=== PATIENT | male | born 1945 | race African-American/Black ===

== ENCOUNTER 2020-08-04 06:22 | Inpatient (IN) | payer MEDICARE, OTHER ==
[~2020-08-04] VITALS: Ht 175.3 cm; Wt 106.0 kg
[~2020-08-04 06:22] MED LIST: ALEN70TA77 PO; ATOR10TA9 PO; BENA10TA59 PO; BRIM5DRO2 RIGHTEYE; GABA300C10 PO; HYDR-3653 PO; LATA2.5D4 RIGHTEYE; PANT40TA6 PO; PIOG30TA68 PO; POTA20LI2 PO; VERA120T13 PO
--- NOTE | 2020-08-04 06:42 | NUR ---
pt walked back to room 36. to jerod pt. awake and alert x4.
--- NOTE | 2020-08-04 06:45 | NUR ---
net technical architect to bedside to do ekg. pt awake and alert.
--- NOTE | 2020-08-04 06:59 | NUR ---
report and care transferred to day shift RN without incident.
[2020-08-04] MEDS ORDERED: SODIUM CHLORIDE FLUSH 10ML SYR IVF ONE (07:00)
--- NOTE | 2020-08-04 07:32 | NUR ---
Iv started x 2 attempts labs drawn, pt on cardiac and [id number] monitor. at bedisde. BS are hypoactive, abdomen is firm and distended. Pt states passed flatulence this morning, no BM since friday. Pt states he has been burping a lot this week. Pt to go to XRay. Plan of care discussed.
--- NOTE | 2020-08-04 07:46 | NUR ---
ERP aware of patient epigastric pain.
[2020-08-04] MEDS ORDERED: ONDANSETRON 2MG/ML, 2ML ONE ×2 (07:50→14:18)
[2020-08-04] MEDS ORDERED: MORPHINE SULFATE 4 MG/ML, 1ML ONE ×3 (07:51→16:53)
[2020-08-04] MEDS: MORPHINE SULFATE 4 MG/ML, 1ML IVPush PRN ×4 (07:52→08:37)
[2020-08-04 07:57] LABS: BASOPHILS % (AUTO) 0 % (0-1); EOSINOPHILS % (AUTO) 0 % (1-7); LYMPHOCYTES % (AUTO) 13 % (22-44); MEAN CORPUSCULAR HEMOGLOBIN 27.9 pg (27.5-34.5); MEAN CORPUSCULAR HGB CONC 33.4 g/dL (33.2-36.2); MEAN PLATELET VOLUME 8.5 fL (7.4-10.4); MONOCYTES % (AUTO) 9 % (2-9); NEUTROPHILS % (AUTO) 78 % (42-75); PLATELET COUNT 203 x10^3/uL (130-400); RED BLOOD COUNT 4.64 x10^6/uL (4.38-5.82); RED CELL DISTRIBUTION WIDTH 15.5 % (9.4-14.8)
[2020-08-04 08:00] LABS: MD NO
[2020-08-04] MEDS ORDERED: ONDANSETRON 2MG/ML, 2ML IVPush ONE (08:00)
--- NOTE | 2020-08-04 08:02 | NUR ---
Patient medicated with morphine, both doses, pain increased to 8/10. Patient appears more calm, however, states painis not better, pt away to xray. at bedside. Awaiting results.
[2020-08-04 08:08] LABS: ANION GAP 9 mmol/L (5-15); CALCIUM 9.5 mg/dL (8.5-10.1); CHLORIDE 96 mmol/L (98-107)
[2020-08-04 08:11] LABS: ALANINE AMINOTRANSFERASE 16 U/L (12-78); ALKALINE PHOSPHATASE 56 U/L (45-117); BILIRUBIN,TOTAL 0.6 mg/dL (0.2-1.0); CREATININE 1.46 mg/dL (0.7-1.3); TOTAL PROTEIN 8.7 g/dL (6.4-8.2); TROPONIN I 0.017 ng/mL (0.000-0.045)
--- NOTE | 2020-08-04 08:37 | NUR ---
Patient returned from xray with 8/10 pain. medicated 2 more times, now resting with pain 5/10. Awaiting for radiology interpretation.
[2020-08-04] MEDS ORDERED: hydrALAzine 20 MG/ML, 1ML ONE ×2 (09:05→12:27)
--- NOTE | 2020-08-04 09:15 | NUR ---
pt needs new iv; 22 in hand is not adequate for contrast injection.
[2020-08-04] MEDS ORDERED: hydrALAzine 20 MG/ML, 1ML IV ONE ×2 (09:30→14:00)
--- NOTE | 2020-08-04 10:15 | NUR ---
ATTEMPTED IV X 3. <Y SELF AND SONIA HANSEN TO ATTEMPT IV
--- NOTE | 2020-08-04 10:55 | NUR ---
Ct called, 20 sadie right forearm placved by Laura ASENCIO. Awaiting Ct scan and results.
--- NOTE | 2020-08-04 11:09 | NUR ---
Pt away to CT scan.
--- NOTE | 2020-08-04 11:33 | NUR ---
Called CT. They did not come when called earlier. Pt Bp has imporved, at bedside. awaiting Ct scan.
--- NOTE | 2020-08-04 11:46 | NUR ---
pt away to CT . BP rechecked pain is 01/11. Notify Dr. Forbes
[2020-08-04] MEDS ORDERED: OMNIPAQUE 350 MG/ML, 100ML BOTTLE ONE (11:59)
--- NOTE | 2020-08-04 12:35 | NUR ---
DR. Forbes at [facility]. Pt swabbed for COVID. Plan of care discussed. Verbal order for hydralazine 10 IV, BP 201/100. at bedside.
--- NOTE | 2020-08-04 12:43 | NUR ---
pt urinated, dark emmanuel
[2020-08-04] MEDS ORDERED: SODIUM CHLORIDE 0.9% 1,000ML IVBOLUS ONE (13:00)
[2020-08-04] MEDS ORDERED: SODIUM CHLORIDE 0.9% 1,000 ML IV ONE (13:00)
--- NOTE | 2020-08-04 13:05 | NUR ---
BP has decreased, pt on monitor, at bedside.
--- NOTE | 2020-08-04 13:20 | NUR ---
Report to OR. [facility] MD's x 3 at bedside. MD and TECHNOLOGY RISK INTERN aware of patient continue HTN and tachycardia. at bedside.
--- NOTE | 2020-08-04 13:45 | NUR ---
Ip Architect here to tow picker patient. Pt goning to OR. Pt to take belongings home.
[2020-08-04] MEDS ORDERED: FENTANYL PF 250 MCG/5ML ONE (13:49)
[2020-08-04] MEDS ORDERED: CEFOTETAN 2 GM ONE (14:18)
[2020-08-04] MEDS ORDERED: ESMOLOL 100 MG/10 ML ONE (14:18)
[2020-08-04] MEDS ORDERED: PROPOFOL 10 MG/ML, 20ML ONE (14:18)
[2020-08-04] MEDS ORDERED: SUCCINYLCHOLINE 20 MG/ML, 10ML ONE (14:18)
[2020-08-04] MEDS ORDERED: SUGAMMADEX 200 MG/2 ML IVPush ONE (14:18)
[2020-08-04] MEDS ORDERED: ROCURONIUM 10MG/ML,5ML ONE (14:18)
[2020-08-04] MEDS ORDERED: SODIUM CHLORIDE FLUSH 10ML SYR IVF PRN (14:30)
[2020-08-04] MEDS ORDERED: METRONIDAZOLE PMX 500MG/100ML 100 ML ONE (15:23)
[2020-08-04] MEDS ORDERED: IBUPROFEN 600 MG TABLET PO PRN (16:00)
[2020-08-04] MEDS ORDERED: LACTATED RINGERS 1,000 ML IV SCH (16:00)
[2020-08-04] MEDS ORDERED: ONDANSETRON ODT 4 MG PO PRN (16:00)
[2020-08-04] MEDS ORDERED: DEXTROSE 4 GM TAB.CHEW PO PRN (16:00)
[2020-08-04] MEDS ORDERED: hydrALAzine 20 MG/ML, 1ML IVPush PRN (16:00)
[2020-08-04] MEDS: INSULIN LISPRO 100 UNITS/ML, PEN SQ-INSULIN SCH ×2 (16:00→21:00)
[2020-08-04] MEDS ORDERED: morphine SULFATE 10 MG/ML, 1ML IVPush PRN (16:00)
[2020-08-04] MEDS ORDERED: ACETAMINOPHEN 325 MG TABLET PO PRN (16:00)
[2020-08-04] MEDS ORDERED: GLUCAGON 1 MG IM PRN (16:00)
[2020-08-04] MEDS ORDERED: ENALAPRILAT 1.25 MG/ML, 2ML IVPush PRN (16:00)
[2020-08-04] MEDS ORDERED: DEXTROSE 50%, 50ML SYRINGE IVPush PRN (16:00)
[2020-08-04] MEDS: morphine SULFATE 10 MG/ML, 1ML IVPush PRN ×2 (17:00→17:15)
[2020-08-04] MEDS ORDERED: hydrALAzine 20 MG/ML, 1ML IV PRN (17:30)
[2020-08-04] MEDS ORDERED: LABETALOL 5MG/ML, 20ML IV PRN (17:30)
[2020-08-04] MEDS ORDERED: FENTANYL PF 100 MCG/2ML IV PRN (17:30)
[2020-08-04] MEDS ORDERED: ONDANSETRON 2MG/ML, 2ML IVPush PRN (17:30)
[2020-08-04] MEDS ORDERED: PROMETHAZINE 25 MG/ML, 1ML IVPush PRN (17:30)
[2020-08-04 17:45] VITALS: BP 158/88
[2020-08-04] MEDS ORDERED: morphine SULFATE 10 MG/ML, 1ML IV PRN (18:30)
[2020-08-04] MEDS ORDERED: ENOXAPARIN 40 MG/0.4 ML SQ SCH (18:30)
[2020-08-04 19:48] VITALS: BP 134/83
[2020-08-04] MEDS ORDERED: NETA2.5D EACHEYE (20:18)
[2020-08-04] MEDS ORDERED: PRAV20TA2 PO (20:18)
[2020-08-04] MEDS: VERAPAMIL 120MG TABLET PO SCH (21:00)
[2020-08-04] MEDS: PANTOPRAZOLE 40MG TABLET PO SCH (21:00)
[2020-08-04] MEDS: GABAPENTIN 300 MG CAPSULE PO SCH (21:00)
[2020-08-04] MEDS: LATANOPROST OPHTH 0.005%, 2.5ML RIGHTEYE SCH (21:00)
[2020-08-04] MEDS: SODIUM CHLORIDE FLUSH 10ML SYR IVF SCH (21:00)
[2020-08-04] MEDS: POTASSIUM CHLORIDE 20 MEQ TAB.ER.PRT PO SCH (21:00)
[2020-08-04] MEDS: PIPERACILLIN/TAZO/PMX 3.375GM 50 ML IV SCH (22:21)
[2020-08-05 00:04] VITALS: BP 103/67
[2020-08-05] MEDS: LACTATED RINGERS 1,000 ML IV SCH ×3 (02:16→22:13)
[2020-08-05] MEDS: PIPERACILLIN/TAZO/PMX 3.375GM 50 ML IV SCH ×4 (03:43→23:06)
[2020-08-05 04:19] VITALS: BP 108/64
[2020-08-05 04:47] LABS: BASOPHILS % (AUTO) 0 % (0-1); EOSINOPHILS % (AUTO) 0 % (1-7); LYMPHOCYTES % (AUTO) 8 % (22-44); MD NO; MEAN CORPUSCULAR HEMOGLOBIN 27.8 pg (27.5-34.5); MEAN CORPUSCULAR HGB CONC 33.3 g/dL (33.2-36.2); MEAN PLATELET VOLUME 8.2 fL (7.4-10.4); MONOCYTES % (AUTO) 15 % (2-9); NEUTROPHILS % (AUTO) 77 % (42-75); PLATELET COUNT 185 x10^3/uL (130-400); RED BLOOD COUNT 4.51 x10^6/uL (4.38-5.82); RED CELL DISTRIBUTION WIDTH 15.5 % (9.4-14.8)
[2020-08-05 04:54] LABS: CHLORIDE 100 mmol/L (98-107)
[2020-08-05 04:59] LABS: ALANINE AMINOTRANSFERASE 12 U/L (12-78); ALBUMIN 2.6 g/dL (3.4-5.0); ALKALINE PHOSPHATASE 36 U/L (45-117); ANION GAP 7 mmol/L (5-15); BILIRUBIN,TOTAL 0.8 mg/dL (0.2-1.0); CALCIUM 7.6 mg/dL (8.5-10.1); CREATININE 1.88 mg/dL (0.7-1.3); TOTAL PROTEIN 5.9 g/dL (6.4-8.2)
[2020-08-05] MEDS ORDERED: ALENDRONATE 70 MG TABLET PO SCH (06:00)
[2020-08-05] MEDS: INSULIN LISPRO 100 UNITS/ML, PEN SQ-INSULIN SCH ×4 (07:00→21:00)
[2020-08-05 07:19] VITALS: BP 117/76
[2020-08-05] MEDS ORDERED: ENOXAPARIN 40 MG/0.4 ML SQ SCH (09:00)
[2020-08-05] MEDS: POTASSIUM CHLORIDE 20 MEQ TAB.ER.PRT PO SCH ×2 (09:00→21:00)
[2020-08-05] MEDS: BENAZEPRIL 10 MG TABLET PO SCH (09:00)
[2020-08-05] MEDS: GABAPENTIN 300 MG CAPSULE PO SCH ×3 (09:00→21:00)
[2020-08-05] MEDS: SODIUM CHLORIDE FLUSH 10ML SYR IVF SCH ×2 (09:00→21:00)
[2020-08-05] MEDS: PIOGLITAZONE 15 MG TABLET PO SCH (09:00)
[2020-08-05] MEDS: PRAVASTATIN 20 MG TABLET PO SCH (09:00)
[2020-08-05] MEDS: PANTOPRAZOLE 40MG TABLET PO SCH ×2 (09:00→21:00)
[2020-08-05] MEDS: VERAPAMIL 120MG TABLET PO SCH ×2 (09:00→21:00)
[2020-08-05 12:38] VITALS: BP 139/81
[2020-08-05] MEDS: MORPHINE 30MG/30ML PCA.SYR IV PRN (14:12)
[2020-08-05 18:35] LABS: ANION GAP 7 mmol/L (5-15); CALCIUM 8.1 mg/dL (8.5-10.1); CHLORIDE 98 mmol/L (98-107); CREATININE 3.05 mg/dL (0.7-1.3)
[2020-08-05] MEDS: LATANOPROST RIGHTEYE SCH (20:00)
[2020-08-05 20:22] VITALS: BP 133/79
[2020-08-05] MEDS: RHOPRESSA RIGHTEYE SCH (21:00)
[2020-08-05] MEDS: LATANOPROST OPHTH 0.005%, 2.5ML RIGHTEYE SCH (21:00)
[2020-08-06 01:19] VITALS: BP 131/78
[2020-08-06] MEDS: LACTATED RINGERS 1,000 ML IV SCH ×3 (05:08→20:54)
[2020-08-06] MEDS: PIPERACILLIN/TAZO/PMX 3.375GM 50 ML IV SCH ×2 (05:08→12:10)
[2020-08-06 06:28] LABS: CHLORIDE 100 mmol/L (98-107)
[2020-08-06 06:29] LABS: BASOPHILS % (AUTO) 0 % (0-1); EOSINOPHILS % (AUTO) 0 % (1-7); LYMPHOCYTES % (AUTO) 14 % (22-44); MEAN CORPUSCULAR HEMOGLOBIN 28.1 pg (27.5-34.5); MEAN CORPUSCULAR HGB CONC 33.4 g/dL (33.2-36.2); MEAN PLATELET VOLUME 8.4 fL (7.4-10.4); MONOCYTES % (AUTO) 16 % (2-9); NEUTROPHILS % (AUTO) 70 % (42-75); PLATELET COUNT 171 x10^3/uL (130-400); RED BLOOD COUNT 3.82 x10^6/uL (4.38-5.82); RED CELL DISTRIBUTION WIDTH 15.5 % (9.4-14.8)
[2020-08-06 06:35] LABS: MD NO
[2020-08-06 06:40] LABS: ANION GAP 9 mmol/L (5-15); CALCIUM 7.9 mg/dL (8.5-10.1); CREATININE 2.89 mg/dL (0.7-1.3)
[2020-08-06] MEDS: INSULIN LISPRO 100 UNITS/ML, PEN SQ-INSULIN SCH ×4 (07:00→20:57)
[2020-08-06 07:31] VITALS: BP 132/80
[2020-08-06] MEDS: COMBIGAN RIGHTEYE SCH ×2 (08:00→16:32)
[2020-08-06] MEDS: SODIUM CHLORIDE FLUSH 10ML SYR IVF SCH ×2 (09:00→20:54)
[2020-08-06] MEDS: BENAZEPRIL 10 MG TABLET PO SCH (09:13)
[2020-08-06] MEDS: PANTOPRAZOLE 40MG TABLET PO SCH ×2 (09:13→20:57)
[2020-08-06] MEDS: PIOGLITAZONE 15 MG TABLET PO SCH (09:13)
[2020-08-06] MEDS: PRAVASTATIN 20 MG TABLET PO SCH (09:13)
[2020-08-06] MEDS: VERAPAMIL 120MG TABLET PO SCH ×2 (09:13→20:57)
[2020-08-06] MEDS: GABAPENTIN 300 MG CAPSULE PO SCH ×3 (09:14→20:56)
[2020-08-06] MEDS: POTASSIUM CHLORIDE 20 MEQ TAB.ER.PRT PO SCH ×2 (09:14→20:56)
[2020-08-06] MEDS: ENOXAPARIN 30 MG/0.3 ML SQ SCH (09:14)
[2020-08-06 13:36] VITALS: BP 128/73
[2020-08-06] MEDS ORDERED: MELATONIN 5 MG TABLET PO PRN (16:30)
[2020-08-06] MEDS ORDERED: LACTATED RINGERS 1,000 ML IV SCH (18:30)
[2020-08-06 20:24] VITALS: BP 124/76
[2020-08-06] MEDS: LATANOPROST RIGHTEYE SCH (20:56)
[2020-08-06] MEDS: RHOPRESSA RIGHTEYE SCH (20:57)
[2020-08-06] MEDS: LATANOPROST OPHTH 0.005%, 2.5ML RIGHTEYE SCH (20:58)
[2020-08-07 01:49] VITALS: BP 144/74
[2020-08-07 05:43] LABS: ANION GAP 7 mmol/L (5-15); CALCIUM 8.1 mg/dL (8.5-10.1); CHLORIDE 105 mmol/L (98-107); CREATININE 1.89 mg/dL (0.7-1.3)
[2020-08-07 05:44] LABS: BASOPHILS % (AUTO) 0 % (0-1); EOSINOPHILS % (AUTO) 1 % (1-7); LYMPHOCYTES % (AUTO) 23 % (22-44); MEAN CORPUSCULAR HEMOGLOBIN 27.9 pg (27.5-34.5); MEAN CORPUSCULAR HGB CONC 33.3 g/dL (33.2-36.2); MEAN PLATELET VOLUME 8.5 fL (7.4-10.4); MONOCYTES % (AUTO) 17 % (2-9); NEUTROPHILS % (AUTO) 60 % (42-75); PLATELET COUNT 162 x10^3/uL (130-400); RED BLOOD COUNT 3.13 x10^6/uL (4.38-5.82); RED CELL DISTRIBUTION WIDTH 15.7 % (9.4-14.8)
[2020-08-07 06:32] LABS: MD SCAN
[2020-08-07] MEDS: INSULIN LISPRO 100 UNITS/ML, PEN SQ-INSULIN SCH ×4 (07:00→21:00)
[2020-08-07 07:50] VITALS: BP 126/72
[2020-08-07] MEDS: COMBIGAN RIGHTEYE SCH ×2 (08:00→16:45)
[2020-08-07] MEDS: MORPHINE 30MG/30ML PCA.SYR IV PRN (08:48)
[2020-08-07] MEDS: PANTOPRAZOLE 40MG TABLET PO SCH ×2 (08:48→21:13)
[2020-08-07] MEDS: GABAPENTIN 300 MG CAPSULE PO SCH ×3 (08:48→21:13)
[2020-08-07] MEDS: PRAVASTATIN 20 MG TABLET PO SCH (08:48)
[2020-08-07] MEDS: BENAZEPRIL 10 MG TABLET PO SCH (08:48)
[2020-08-07] MEDS: POTASSIUM CHLORIDE 20 MEQ TAB.ER.PRT PO SCH ×2 (08:48→21:16)
[2020-08-07] MEDS: ENOXAPARIN 30 MG/0.3 ML SQ SCH (08:49)
[2020-08-07] MEDS: SODIUM CHLORIDE FLUSH 10ML SYR IVF SCH ×2 (08:49→21:13)
[2020-08-07] MEDS: VERAPAMIL 120MG TABLET PO SCH ×2 (08:52→21:14)
[2020-08-07] MEDS: LACTATED RINGERS 1,000 ML IV SCH ×2 (09:01→21:13)
[2020-08-07] MEDS: ONDANSETRON 2MG/ML, 2ML IVPush PRN (09:05)
[2020-08-07 12:25] VITALS: BP 122/75
[2020-08-07 19:14] VITALS: BP 145/74
[2020-08-07] MEDS: LATANOPROST RIGHTEYE SCH (20:00)
[2020-08-07] MEDS: LATANOPROST OPHTH 0.005%, 2.5ML RIGHTEYE SCH (21:00)
[2020-08-07] MEDS: RHOPRESSA RIGHTEYE SCH (21:00)
[2020-08-08 00:25] VITALS: BP 119/74
[2020-08-08 05:19] LABS: BASOPHILS % (AUTO) 0 % (0-1); EOSINOPHILS % (AUTO) 2 % (1-7); LYMPHOCYTES % (AUTO) 24 % (22-44); MEAN CORPUSCULAR HEMOGLOBIN 28.1 pg (27.5-34.5); MEAN CORPUSCULAR HGB CONC 33.3 g/dL (33.2-36.2); MEAN PLATELET VOLUME 8.4 fL (7.4-10.4); MONOCYTES % (AUTO) 18 % (2-9); NEUTROPHILS % (AUTO) 56 % (42-75); PLATELET COUNT 156 x10^3/uL (130-400); RED CELL DISTRIBUTION WIDTH 15.2 % (9.4-14.8)
[2020-08-08] MEDS: LACTATED RINGERS 1,000 ML IV SCH ×2 (05:27→16:14)
[2020-08-08] MEDS: COMBIGAN RIGHTEYE SCH ×2 (05:28→16:14)
[2020-08-08 05:29] LABS: ALBUMIN 2.6 g/dL (3.4-5.0); ANION GAP 5 mmol/L (5-15); CALCIUM 8.2 mg/dL (8.5-10.1); CHLORIDE 106 mmol/L (98-107)
[2020-08-08 05:32] LABS: MD NO
[2020-08-08 05:34] LABS: ALANINE AMINOTRANSFERASE 11 U/L (12-78); ALKALINE PHOSPHATASE 32 U/L (45-117); BILIRUBIN,TOTAL 0.4 mg/dL (0.2-1.0); CREATININE 1.37 mg/dL (0.7-1.3); TOTAL PROTEIN 6.3 g/dL (6.4-8.2)
[2020-08-08 06:15] VITALS: BP 121/58
[2020-08-08] MEDS: INSULIN LISPRO 100 UNITS/ML, PEN SQ-INSULIN SCH ×4 (07:00→20:28)
[2020-08-08] MEDS: ALENDRONATE 70 MG TABLET PO SCH (07:07)
[2020-08-08 07:15] VITALS: BP 121/58
[2020-08-08] MEDS: PRAVASTATIN 20 MG TABLET PO SCH (08:28)
[2020-08-08] MEDS: BENAZEPRIL 10 MG TABLET PO SCH (08:28)
[2020-08-08] MEDS: VERAPAMIL 120MG TABLET PO SCH ×2 (08:28→20:31)
[2020-08-08] MEDS: GABAPENTIN 300 MG CAPSULE PO SCH ×3 (08:28→20:27)
[2020-08-08] MEDS: POTASSIUM CHLORIDE 20 MEQ TAB.ER.PRT PO SCH ×2 (08:28→20:27)
[2020-08-08] MEDS: PANTOPRAZOLE 40MG TABLET PO SCH ×2 (08:28→20:27)
[2020-08-08] MEDS: ENOXAPARIN 30 MG/0.3 ML SQ SCH (08:28)
[2020-08-08] MEDS: SODIUM CHLORIDE FLUSH 10ML SYR IVF SCH ×2 (08:29→20:27)
[2020-08-08] MEDS: MAGNESIUM HYDROXIDE 8%, 30ML UDC PO SCH ×2 (11:45→20:26)
[2020-08-08 13:57] VITALS: BP 123/74
[2020-08-08 19:35] VITALS: BP 123/71
[2020-08-08] MEDS: LATANOPROST RIGHTEYE SCH (20:00)
[2020-08-08] MEDS: RHOPRESSA RIGHTEYE SCH (20:27)
[2020-08-08] MEDS: LATANOPROST OPHTH 0.005%, 2.5ML RIGHTEYE SCH (20:28)
[2020-08-09] MEDS: LACTATED RINGERS 1,000 ML IV SCH ×3 (00:44→17:34)
[2020-08-09 01:02] VITALS: BP 123/71
[2020-08-09] MEDS: COMBIGAN RIGHTEYE SCH ×2 (05:20→17:10)
[2020-08-09 05:50] LABS: BASOPHILS % (AUTO) 0 % (0-1); EOSINOPHILS % (AUTO) 2 % (1-7); LYMPHOCYTES % (AUTO) 25 % (22-44); MEAN CORPUSCULAR HEMOGLOBIN 27.8 pg (27.5-34.5); MEAN CORPUSCULAR HGB CONC 33.1 g/dL (33.2-36.2); MEAN PLATELET VOLUME 7.9 fL (7.4-10.4); MONOCYTES % (AUTO) 18 % (2-9); NEUTROPHILS % (AUTO) 55 % (42-75); PLATELET COUNT 209 x10^3/uL (130-400); RED BLOOD COUNT 3.08 x10^6/uL (4.38-5.82); RED CELL DISTRIBUTION WIDTH 15.5 % (9.4-14.8)
[2020-08-09 05:53] LABS: MD NO
[2020-08-09 06:01] LABS: ANION GAP 4 mmol/L (5-15); CALCIUM 8.1 mg/dL (8.5-10.1); CHLORIDE 105 mmol/L (98-107); CREATININE 1.16 mg/dL (0.7-1.3)
[2020-08-09] MEDS: INSULIN LISPRO 100 UNITS/ML, PEN SQ-INSULIN SCH ×4 (06:41→20:49)
[2020-08-09 08:00] VITALS: BP 136/80
[2020-08-09] MEDS: SODIUM CHLORIDE FLUSH 10ML SYR IVF SCH ×2 (09:00→20:52)
[2020-08-09] MEDS: MAGNESIUM HYDROXIDE 8%, 30ML UDC PO SCH ×2 (09:28→20:53)
[2020-08-09] MEDS: GABAPENTIN 300 MG CAPSULE PO SCH ×3 (09:29→20:52)
[2020-08-09] MEDS: PRAVASTATIN 20 MG TABLET PO SCH (09:29)
[2020-08-09] MEDS: PANTOPRAZOLE 40MG TABLET PO SCH ×2 (09:29→20:58)
[2020-08-09] MEDS: BENAZEPRIL 10 MG TABLET PO SCH (09:29)
[2020-08-09] MEDS: VERAPAMIL 120MG TABLET PO SCH ×2 (09:30→20:52)
[2020-08-09] MEDS: POTASSIUM CHLORIDE 20 MEQ TAB.ER.PRT PO SCH ×2 (09:30→20:52)
[2020-08-09] MEDS: ENOXAPARIN 40 MG/0.4 ML SQ SCH (09:33)
[2020-08-09] MEDS: OXYcodone/APAP 5/325MG TABLET PO PRN (12:10)
[2020-08-09 13:13] VITALS: BP 119/72
[2020-08-09 19:13] VITALS: BP 121/78
[2020-08-09] MEDS: LATANOPROST RIGHTEYE SCH (20:00)
[2020-08-09] MEDS: LATANOPROST OPHTH 0.005%, 2.5ML RIGHTEYE SCH (20:58)
[2020-08-09] MEDS: RHOPRESSA RIGHTEYE SCH (20:58)
[2020-08-10 00:52] VITALS: BP 145/74
[2020-08-10] MEDS: LACTATED RINGERS 1,000 ML IV SCH ×2 (03:58→14:12)
[2020-08-10 05:49] LABS: MEAN CORPUSCULAR HEMOGLOBIN 27.9 pg (27.5-34.5); MEAN CORPUSCULAR HGB CONC 33.4 g/dL (33.2-36.2); MEAN PLATELET VOLUME 7.9 fL (7.4-10.4); PLATELET COUNT 238 x10^3/uL (130-400); RED BLOOD COUNT 3.34 x10^6/uL (4.38-5.82); RED CELL DISTRIBUTION WIDTH 15.4 % (9.4-14.8)
[2020-08-10 06:12] LABS: MD YES
[2020-08-10 06:13] LABS: BAND#(MANUAL) 0.22 x10^3/uL; BANDS%(MANUAL) 3 % (0-7)
[2020-08-10 06:14] LABS: ANISOCYTOSIS 1+; LYMPH#(MANUAL) 1.58 x10^3/uL (1-3.4); LYMPHS% (MANUAL) 22 % (22-44); MONOS#(MANUAL) 1.08 x10^3/uL (0.3-2.7); MONOS% (MANUAL) 15 % (2-9); OVALOCYTES 1+; POLYCHROMASIA 1+; SEG#(MANUAL) 4.32 x10^3/uL (1.8-6.8); SEGS% (MANUAL) 60 % (42-75)
[2020-08-10 06:15] LABS: <PLATELET ESTIMATE> ADEQUATE; <PLT MORPHOLOGY> NORMAL PLT MORPH
[2020-08-10 06:29] LABS: ANION GAP 5 mmol/L (5-15); CHLORIDE 105 mmol/L (98-107); CREATININE 1.13 mg/dL (0.7-1.3)
[2020-08-10 06:55] VITALS: BP 126/72
[2020-08-10] MEDS: INSULIN LISPRO 100 UNITS/ML, PEN SQ-INSULIN SCH ×4 (07:00→20:29)
[2020-08-10] MEDS: PANTOPRAZOLE 40MG TABLET PO SCH ×2 (08:00→20:26)
[2020-08-10] MEDS: BENAZEPRIL 10 MG TABLET PO SCH (08:00)
[2020-08-10] MEDS: VERAPAMIL 120MG TABLET PO SCH ×2 (08:00→20:27)
[2020-08-10] MEDS: COMBIGAN RIGHTEYE SCH ×3 (08:00→17:00)
[2020-08-10] MEDS: PRAVASTATIN 20 MG TABLET PO SCH (08:00)
[2020-08-10] MEDS: GABAPENTIN 300 MG CAPSULE PO SCH ×3 (08:00→20:26)
[2020-08-10] MEDS: POTASSIUM CHLORIDE 20 MEQ TAB.ER.PRT PO SCH ×2 (08:00→20:26)
[2020-08-10] MEDS: ENOXAPARIN 40 MG/0.4 ML SQ SCH (08:01)
[2020-08-10] MEDS: SODIUM CHLORIDE FLUSH 10ML SYR IVF SCH ×2 (08:04→20:27)
[2020-08-10] MEDS: MAGNESIUM HYDROXIDE 8%, 30ML UDC PO SCH ×2 (08:04→20:28)
[2020-08-10 13:35] VITALS: BP 124/73
[2020-08-10] MEDS: RHOPRESSA RIGHTEYE SCH (20:28)
[2020-08-10] MEDS: LATANOPROST OPHTH 0.005%, 2.5ML RIGHTEYE SCH (20:29)
[2020-08-10] MEDS: LATANOPROST RIGHTEYE SCH (20:29)
[2020-08-10 20:57] VITALS: BP 125/71
[2020-08-11 00:37] VITALS: BP 144/77
[2020-08-11] MEDS: LACTATED RINGERS 1,000 ML IV SCH ×2 (04:00→09:04)
[2020-08-11 05:10] LABS: MEAN CORPUSCULAR HEMOGLOBIN 28.1 pg (27.5-34.5); MEAN CORPUSCULAR HGB CONC 33.4 g/dL (33.2-36.2); MEAN PLATELET VOLUME 7.9 fL (7.4-10.4); PLATELET COUNT 287 x10^3/uL (130-400); RED BLOOD COUNT 3.15 x10^6/uL (4.38-5.82); RED CELL DISTRIBUTION WIDTH 15.4 % (9.4-14.8)
[2020-08-11 05:19] LABS: ANION GAP 6 mmol/L (5-15); CALCIUM 7.6 mg/dL (8.5-10.1); CHLORIDE 106 mmol/L (98-107); CREATININE 0.99 mg/dL (0.7-1.3)
[2020-08-11 05:58] LABS: MD YES
[2020-08-11 06:02] LABS: ANISOCYTOSIS 1+; BAND#(MANUAL) 0.13 x10^3/uL; BANDS%(MANUAL) 2 % (0-7); EOS#(MANUAL) 0.07 x10^3/uL (0.0-0.4); EOS% (MANUAL) 1 % (1-7); LYMPH#(MANUAL) 0.99 x10^3/uL (1-3.4); LYMPHS% (MANUAL) 15 % (22-44); METAMYELOCYTES# (MANUAL) 0.07 x10^3/uL (0-0); METAMYELOCYTES% (MANUAL) 1 % (0-1); MONOS#(MANUAL) 0.46 x10^3/uL (0.3-2.7); MONOS% (MANUAL) 7 % (2-9); SEG#(MANUAL) 4.88 x10^3/uL (1.8-6.8); SEGS% (MANUAL) 74 % (42-75)
[2020-08-11 06:03] LABS: <PLATELET ESTIMATE> ADEQUATE; <PLT MORPHOLOGY> NORMAL PLT MORPH; POLYCHROMASIA 1+
[2020-08-11] MEDS: INSULIN LISPRO 100 UNITS/ML, PEN SQ-INSULIN SCH ×4 (06:32→20:22)
[2020-08-11] MEDS: COMBIGAN RIGHTEYE SCH ×2 (08:00→17:00)
[2020-08-11 08:13] VITALS: BP 131/75
[2020-08-11] MEDS: MAGNESIUM HYDROXIDE 8%, 30ML UDC PO SCH ×2 (09:00→20:19)
[2020-08-11] MEDS: POTASSIUM CHLORIDE 20 MEQ TAB.ER.PRT PO SCH ×2 (09:04→20:15)
[2020-08-11] MEDS: PANTOPRAZOLE 40MG TABLET PO SCH ×2 (09:04→20:16)
[2020-08-11] MEDS: VERAPAMIL 120MG TABLET PO SCH ×2 (09:04→20:17)
[2020-08-11] MEDS: BENAZEPRIL 10 MG TABLET PO SCH (09:04)
[2020-08-11] MEDS: PRAVASTATIN 20 MG TABLET PO SCH (09:04)
[2020-08-11] MEDS: ENOXAPARIN 40 MG/0.4 ML SQ SCH (09:04)
[2020-08-11] MEDS: SODIUM CHLORIDE FLUSH 10ML SYR IVF SCH ×2 (09:05→20:20)
[2020-08-11] MEDS: GABAPENTIN 300 MG CAPSULE PO SCH ×3 (09:05→20:15)
[2020-08-11 13:44] VITALS: BP 127/66
[2020-08-11 19:49] VITALS: BP 158/74
[2020-08-11] MEDS: LATANOPROST RIGHTEYE SCH (20:00)
[2020-08-11] MEDS: OXYcodone/APAP 5/325MG TABLET PO PRN (20:16)
[2020-08-11] MEDS: RHOPRESSA RIGHTEYE SCH (20:20)
[2020-08-11] MEDS: LATANOPROST OPHTH 0.005%, 2.5ML RIGHTEYE SCH (20:21)
[2020-08-12 00:31] VITALS: BP 145/78
[2020-08-12] MEDS: INSULIN LISPRO 100 UNITS/ML, PEN SQ-INSULIN SCH ×4 (07:00→20:33)
[2020-08-12 07:29] VITALS: BP 128/72
[2020-08-12] MEDS: COMBIGAN RIGHTEYE SCH ×2 (08:00→16:13)
[2020-08-12] MEDS: GABAPENTIN 300 MG CAPSULE PO SCH ×4 (08:12→20:32)
[2020-08-12] MEDS: BENAZEPRIL 10 MG TABLET PO SCH ×2 (08:13→11:25)
[2020-08-12] MEDS: POTASSIUM CHLORIDE 20 MEQ TAB.ER.PRT PO SCH ×3 (08:13→20:31)
[2020-08-12] MEDS: VERAPAMIL 120MG TABLET PO SCH ×3 (08:13→20:31)
[2020-08-12] MEDS: SODIUM CHLORIDE FLUSH 10ML SYR IVF SCH ×2 (08:13→20:32)
[2020-08-12] MEDS: PRAVASTATIN 20 MG TABLET PO SCH ×2 (08:13→11:24)
[2020-08-12] MEDS: PANTOPRAZOLE 40MG TABLET PO SCH ×2 (08:13→20:31)
[2020-08-12] MEDS: MAGNESIUM HYDROXIDE 8%, 30ML UDC PO SCH ×2 (08:13→20:32)
[2020-08-12] MEDS: ENOXAPARIN 40 MG/0.4 ML SQ SCH (08:14)
[2020-08-12 14:05] VITALS: BP 118/71
[2020-08-12 20:12] VITALS: BP 149/80
[2020-08-12] MEDS: LATANOPROST RIGHTEYE SCH (20:32)
[2020-08-12] MEDS: RHOPRESSA RIGHTEYE SCH (20:33)
[2020-08-12] MEDS: LATANOPROST OPHTH 0.005%, 2.5ML RIGHTEYE SCH (20:33)
[2020-08-13 00:04] VITALS: BP 165/78
[2020-08-13] MEDS: ONDANSETRON 2MG/ML, 2ML IVPush PRN (03:12)
[2020-08-13 04:23] VITALS: BP 136/73
[2020-08-13] MEDS ORDERED: OMNIPAQUE 350 MG/ML, 100ML BOTTLE ONE (06:24)
[2020-08-13] MEDS: INSULIN LISPRO 100 UNITS/ML, PEN SQ-INSULIN SCH ×4 (06:53→21:49)
[2020-08-13 07:20] VITALS: BP 121/69
[2020-08-13] MEDS: BENAZEPRIL 10 MG TABLET PO SCH (07:59)
[2020-08-13] MEDS: GABAPENTIN 300 MG CAPSULE PO SCH ×3 (07:59→22:24)
[2020-08-13] MEDS: PRAVASTATIN 20 MG TABLET PO SCH (07:59)
[2020-08-13] MEDS: PANTOPRAZOLE 40MG TABLET PO SCH ×3 (07:59→21:40)
[2020-08-13] MEDS: ENOXAPARIN 40 MG/0.4 ML SQ SCH (07:59)
[2020-08-13] MEDS: POTASSIUM CHLORIDE 20 MEQ TAB.ER.PRT PO SCH ×2 (07:59→21:57)
[2020-08-13] MEDS: LACTATED RINGERS 1,000 ML IV SCH ×2 (07:59→17:43)
[2020-08-13] MEDS: VERAPAMIL 120MG TABLET PO SCH ×2 (08:00→22:24)
[2020-08-13] MEDS: MAGNESIUM HYDROXIDE 8%, 30ML UDC PO SCH ×2 (08:00→21:56)
[2020-08-13] MEDS: COMBIGAN RIGHTEYE SCH ×2 (08:00→15:18)
[2020-08-13] MEDS: SODIUM CHLORIDE FLUSH 10ML SYR IVF SCH ×2 (08:00→21:38)
[2020-08-13 08:27] LABS: MEAN CORPUSCULAR HEMOGLOBIN 27.9 pg (27.5-34.5); MEAN CORPUSCULAR HGB CONC 33.1 g/dL (33.2-36.2); MEAN PLATELET VOLUME 7.6 fL (7.4-10.4); PLATELET COUNT 388 x10^3/uL (130-400); RED CELL DISTRIBUTION WIDTH 15.5 % (9.4-14.8)
[2020-08-13 08:35] LABS: ALANINE AMINOTRANSFERASE 31 U/L (12-78); ALBUMIN 2.7 g/dL (3.4-5.0); ANION GAP 6 mmol/L (5-15); CALCIUM 7.1 mg/dL (8.5-10.1); CHLORIDE 106 mmol/L (98-107); CREATININE 1.16 mg/dL (0.7-1.3)
[2020-08-13 08:37] LABS: ALKALINE PHOSPHATASE 41 U/L (45-117); BILIRUBIN,TOTAL 0.4 mg/dL (0.2-1.0); TOTAL PROTEIN 6.4 g/dL (6.4-8.2)
[2020-08-13 09:50] LABS: MD YES
[2020-08-13 09:53] LABS: <PLATELET ESTIMATE> ADEQUATE; <PLT MORPHOLOGY> NORMAL PLT MORPH; ANISOCYTOSIS 1+; BAND#(MANUAL) 0.18 x10^3/uL; BANDS%(MANUAL) 2 % (0-7); BASOS#(MANUAL) 0.09 x10^3/uL (0-0.1); BASOS% (MANUAL) 1 % (0-1); LYMPH#(MANUAL) 0.83 x10^3/uL (1-3.4); LYMPHS% (MANUAL) 9 % (22-44); MONOS#(MANUAL) 0.55 x10^3/uL (0.3-2.7); MONOS% (MANUAL) 6 % (2-9); POLYCHROMASIA 1+; SEG#(MANUAL) 7.54 x10^3/uL (1.8-6.8); SEGS% (MANUAL) 82 % (42-75)
[2020-08-13 12:13] VITALS: BP 112/53
[2020-08-13] MEDS: METOCLOPRAMIDE 5 MG/ML, 2ML IVPush SCH ×2 (16:17→22:25)
[2020-08-13 19:35] VITALS: BP 120/59
[2020-08-13] MEDS: LATANOPROST RIGHTEYE SCH (21:36)
[2020-08-13] MEDS: LATANOPROST OPHTH 0.005%, 2.5ML RIGHTEYE SCH (21:40)
[2020-08-13] MEDS: RHOPRESSA RIGHTEYE SCH (21:52)
[2020-08-14 01:12] VITALS: BP 113/66
[2020-08-14] MEDS: LACTATED RINGERS 1,000 ML IV SCH ×2 (04:16→14:11)
[2020-08-14] MEDS: METOCLOPRAMIDE 5 MG/ML, 2ML IVPush SCH ×4 (04:16→23:26)
[2020-08-14 05:20] LABS: BASOPHILS % (AUTO) 0 % (0-1); EOSINOPHILS % (AUTO) 1 % (1-7); LYMPHOCYTES % (AUTO) 14 % (22-44); MEAN CORPUSCULAR HEMOGLOBIN 28.3 pg (27.5-34.5); MEAN CORPUSCULAR HGB CONC 33.8 g/dL (33.2-36.2); MEAN PLATELET VOLUME 7.7 fL (7.4-10.4); MONOCYTES % (AUTO) 11 % (2-9); NEUTROPHILS % (AUTO) 75 % (42-75); PLATELET COUNT 395 x10^3/uL (130-400); RED BLOOD COUNT 3.07 x10^6/uL (4.38-5.82); RED CELL DISTRIBUTION WIDTH 15.7 % (9.4-14.8)
[2020-08-14 05:28] LABS: ANION GAP 4 mmol/L (5-15); CALCIUM 6.7 mg/dL (8.5-10.1); CHLORIDE 106 mmol/L (98-107)
[2020-08-14 05:29] LABS: CREATININE 1.16 mg/dL (0.7-1.3)
[2020-08-14 05:32] LABS: MD NO
[2020-08-14 06:20] VITALS: BP 133/67
[2020-08-14] MEDS: INSULIN LISPRO 100 UNITS/ML, PEN SQ-INSULIN SCH ×4 (07:00→21:21)
[2020-08-14] MEDS ORDERED: POTASSIUM CHLORIDE 20 MEQ PACKET ONE (07:48)
[2020-08-14] MEDS: COMBIGAN RIGHTEYE SCH ×2 (08:00→15:59)
[2020-08-14] MEDS: PRAVASTATIN 20 MG TABLET PO SCH (08:01)
[2020-08-14] MEDS: PANTOPRAZOLE 40 MG IV IVPush SCH ×2 (08:01→21:24)
[2020-08-14] MEDS: VERAPAMIL 120MG TABLET PO SCH ×2 (08:01→21:35)
[2020-08-14] MEDS: BENAZEPRIL 10 MG TABLET PO SCH (08:01)
[2020-08-14] MEDS: GABAPENTIN 300 MG CAPSULE PO SCH ×3 (08:01→21:35)
[2020-08-14] MEDS: POTASSIUM CHLORIDE 20 MEQ TAB.ER.PRT PO SCH ×3 (08:02→21:42)
[2020-08-14] MEDS: MAGNESIUM HYDROXIDE 8%, 30ML UDC PO SCH ×2 (08:02→21:17)
[2020-08-14] MEDS: SODIUM CHLORIDE FLUSH 10ML SYR IVF SCH ×2 (08:02→21:17)
[2020-08-14] MEDS: ENOXAPARIN 40 MG/0.4 ML SQ SCH (08:03)
[2020-08-14 12:47] VITALS: BP 110/68
[2020-08-14] MEDS ORDERED: TIZANIDINE 4MG TABLET PO ONE (15:00)
[2020-08-14] MEDS: LATANOPROST OPHTH 0.005%, 2.5ML RIGHTEYE SCH (21:17)
[2020-08-14] MEDS: LATANOPROST RIGHTEYE SCH (21:22)
[2020-08-14 21:30] VITALS: BP 126/71
[2020-08-14] MEDS: RHOPRESSA RIGHTEYE SCH (21:33)
[2020-08-15] MEDS: LACTATED RINGERS 1,000 ML IV SCH (00:20)
[2020-08-15 01:02] VITALS: BP 116/74
[2020-08-15] MEDS: METOCLOPRAMIDE 5 MG/ML, 2ML IVPush SCH ×2 (05:27→11:00)
[2020-08-15 05:29] LABS: BASOPHILS % (AUTO) 0 % (0-1); EOSINOPHILS % (AUTO) 0 % (1-7); LYMPHOCYTES % (AUTO) 17 % (22-44); MEAN CORPUSCULAR HEMOGLOBIN 28.3 pg (27.5-34.5); MEAN PLATELET VOLUME 7.7 fL (7.4-10.4); MONOCYTES % (AUTO) 12 % (2-9); NEUTROPHILS % (AUTO) 71 % (42-75); PLATELET COUNT 414 x10^3/uL (130-400); RED BLOOD COUNT 3.13 x10^6/uL (4.38-5.82); RED CELL DISTRIBUTION WIDTH 15.3 % (9.4-14.8)
[2020-08-15 05:34] LABS: MD NO
[2020-08-15 05:41] LABS: CHLORIDE 104 mmol/L (98-107)
[2020-08-15 05:46] LABS: ANION GAP 7 mmol/L (5-15); CALCIUM 7.2 mg/dL (8.5-10.1); CREATININE 1.02 mg/dL (0.7-1.3)
[2020-08-15] MEDS: ALENDRONATE 70 MG TABLET PO SCH (05:58)
[2020-08-15] MEDS: INSULIN LISPRO 100 UNITS/ML, PEN SQ-INSULIN SCH ×2 (06:48→11:00)
[2020-08-15] MEDS: PRAVASTATIN 20 MG TABLET PO SCH (07:36)
[2020-08-15] MEDS: COMBIGAN RIGHTEYE SCH (07:37)
[2020-08-15] MEDS: POTASSIUM CHLORIDE 20 MEQ TAB.ER.PRT PO SCH ×2 (07:37→07:40)
[2020-08-15] MEDS: BENAZEPRIL 10 MG TABLET PO SCH (07:37)
[2020-08-15] MEDS: SODIUM CHLORIDE FLUSH 10ML SYR IVF SCH (07:37)
[2020-08-15] MEDS: MAGNESIUM HYDROXIDE 8%, 30ML UDC PO SCH (07:37)
[2020-08-15] MEDS: GABAPENTIN 300 MG CAPSULE PO SCH (07:37)
[2020-08-15] MEDS: VERAPAMIL 120MG TABLET PO SCH (07:37)
[2020-08-15] MEDS: ENOXAPARIN 40 MG/0.4 ML SQ SCH (07:38)
[2020-08-15] MEDS ORDERED: PANTOPRAZOLE 40MG TABLET ONE (08:16)
[2020-08-15] MEDS ORDERED: PANTOPRAZOLE 40MG TABLET PO SCH (09:00)
[2020-08-15 09:19] VITALS: BP 135/75
[2020-08-15] MEDS ORDERED: POLY17PO5 PO (12:21)
[2020-08-15] MEDS ORDERED: METO10TA82 PO (12:22)
== END 2020-08-15 16:13 | disposition home health service (06) | DRG 329 ==
LOC: ED 11:04 → EDIP 13:14 → 4NE 17:46
PROVIDERS: ADMIT Family Medicine; ATTEND Family Medicine
PROC: 0DN80ZZ Release Small Intestine, Open Approach (ICD-10-PCS; 2020-08-04)
PROC: 0DJU0ZZ Inspection of Omentum, Open Approach (ICD-10-PCS; 2020-08-04)
PROC: 0DTN0ZZ Resection of Sigmoid Colon, Open Approach (ICD-10-PCS; principal; 2020-08-04 13:30)
DX: K56.2 Volvulus (principal); N17.0 Acute kidney failure with tubular necrosis; K25.5 Chronic or unspecified gastric ulcer with perforation; K26.5 Chronic or unspecified duodenal ulcer with perforation; K91.89 Other postprocedural complications and disorders of digestive system; Q43.8 Other specified congenital malformations of intestine; Z20.822 Contact with and (suspected) exposure to COVID-19; K56.52 Intestinal adhesions [bands] with complete obstruction; E11.9 Type 2 diabetes mellitus without complications; E78.00 Pure hypercholesterolemia, unspecified; K56.7 Ileus, unspecified; K63.89 Other specified diseases of intestine; E78.5 Hyperlipidemia, unspecified; E86.0 Dehydration; I10 Essential (primary) hypertension; Z83.3 Family history of diabetes mellitus; Z82.49 Family history of ischemic heart disease and other diseases of the circulatory system; Z87.11 Personal history of peptic ulcer disease; Z79.899 Other long term (current) drug therapy; Z79.01 Long term (current) use of anticoagulants; Z79.891 Long term (current) use of opiate analgesic; Z79.84 Long term (current) use of oral hypoglycemic drugs
CPT/HCPCS: 36415; 74018; 74022; 74177; 80048; 80053; 82962; 83036; 84484; 85025; 87635; 88307; 93005; 96374; 96375; 96376; 99285; G0378; J1650; J2270; J2405; J2543; J2704; J3010; Q0162; Q9967; C9113; J0330; J0360; J1815; J2765; J7030; J7120